=== PATIENT | female | born 1970 | race African-American/Black ===

== ENCOUNTER 2018-07-15 20:35 | Emergency (ER) | payer OTHER ==
[2018-07-15 20:43] VITALS: BP 154/61; PULSE 100; TEMP 98.5; BMI 24.7
--- NOTE | 2018-07-15 20:45 | PDOC ---
Rapid Medical Evaluation Chief Complaint: Respiratory Time Seen by Provider: 07/15/18 20:40 Medical Evaluation: Allergies Allergy/AdvReac Type Severity Reaction Status Date / Time No Known Allergies Allergy Verified 05/14/16 20:31 07/15/18 20:41 I have performed a brief in-person evaluation of this patient. The patient presents with a chief complaint of: cough with yellow phlegm, no fevers / sorethroat Pertinent physical exam findings: tight insp exp wheezing / moist I have ordered the following: Duoneb treatment / CXR The patient will proceed to the ED for further evaluation. Discharge Disposition - Referrals Referrals: Donny Leung MD [Primary Care Provider] - - Patient Instructions - Post Discharge Activity
[2018-07-15] MEDS ORDERED: ALBUTEROL SO4 2.5/IPRATROPIUM 0.5 INH SOL 3 ML VIAL.NEB. NEB ONE (21:45)
[2018-07-15] MEDS: ALBUTEROL SO4 2.5/IPRATROPIUM 0.5 INH SOL 3 ML VIAL.NEB. NEB SCH (21:56)
[2018-07-15] MEDS ORDERED: predniSONE 20 MG TABLET (UD) PO ONE (22:20)
[2018-07-15] MEDS ORDERED: guaiFENesin 200 MG/10 ML 10 ML UNIT-DOSE CUPS PO ONE (22:21)
[2018-07-15] MEDS ORDERED: guaiFENesin/D-METHORPHAN HB 10 ML UNIT-DOSE CUPS ONE (22:22)
[2018-07-15] MEDS ORDERED: predniSONE 20 MG TABLET (UD) ONE (22:22)
--- NOTE | 2018-07-15 22:28 | PDOC ---
History of Present Illness - General Chief Complaint: Respiratory Stated Complaint: COLD,COUGH Time Seen by Provider: 07/15/18 20:40 History Source: Patient Exam Limitations: Clinical Condition - History of Present Illness Initial Comments: 07/15/18 22:21 Patient with history of asthma present with complaint of 2 weeks history of persistent nonproductive cough which has now turned productive cough with nasal congestion, wheezing and intermittent chest tightness. Patient reported yellow sputum production with cough. Patient denies fever, chills, bodyaches. Timing/Duration: other (2 weeks) Past History - Past Medical History Allergies/Adverse Reactions: Allergies Allergy/AdvReac Type Severity Reaction Status Date / Time No Known Allergies Allergy Verified 07/15/18 20:43 Home Medications: Ambulatory Orders Azithromycin [Zithromax 250mg Tablets -] 250 mg PO UTDICT #6 tab 07/15/18 Benzonatate [Tessalon Pearls -] 100 mg PO TID PRN #21 capsule 07/15/18 Ipratropium [place] 2 spray NS BID PRN #1 spray 07/15/18 Prednisone [Deltasone] 20 mg PO BID 5 Days #10 tablet 07/15/18 Asthma: Yes COPD: No - Immunization History Immunization Up to Date: Yes - Suicide/Smoking/Psychosocial Hx Smoking History: Current every day smoker Have you smoked in the past 12 months: No Number of Cigarettes Smoked Daily: 4 Information on smoking cessation initiated: Yes 'Breaking Loose' booklet given: 07/15/18 Hx Alcohol Use: No Drug/Substance Use Hx: No Substance Use Type: None Hx Substance Use Treatment: No Review of Systems - Review of Systems Able to Perform ROS?: Yes Is the patient limited [place]ese proficient: No Constitutional: No: Chills, Fever HEENTM: Yes: See HPI, Nose Congestion. No: Eye Pain, Blurred Vision, Tearing, Recent change in vision, Double Vision, Cataracts, Ear Pain, Ocular Prothesis, Ear Discharge, Nose Pain, Tinnitus, Nose Bleeding, Hearing Loss, Throat Pain, Throat Swelling, Mouth Pain, Dental Problems, Difficulty Swallowing, Mouth Swelling, Other Respiratory: Yes: See HPI, Cough, Wheezing, Productive cough. No: Orthopnea, Shortness of Breath, SOB with Exertion, SOB at Rest, Stridor, Hemoptysis Cardiac (ROS): No: Symptoms Reported, Chest Pain, Edema, Irregular Heart Rate, Lightheadedness, Palpitations, Syncope, Chest Tightness, Other ABD/GI: No: Symptoms Reported, Abdominal Distended, Abd. Pain w/ defecation, Blood Streaked Bowels, Constipated, Diarrhea, Difficulty Swallowing, Nausea, Poor Appetite, Poor Fluid Intake, Rectal Bleeding, Vomiting, Indigestion, Abdominal cramping, Tarry Stools, Other All Other Systems: Reviewed and Negative *Physical Exam - Vital Signs Last Vital Signs Temp Pulse Resp BP Pulse Ox 98.5 F 100 H 18 154/61 98 07/15/18 20:41 07/15/18 20:41 07/15/18 20:41 07/15/18 20:41 07/15/18 20:41 - Physical Exam Comments: 07/15/18 22:23 GENERAL: Well developed, well nourished. Awake and alert. No acute distress. HEENT: Normocephalic, atraumatic. PERRLA, EOMI. No conjunctival pallor. Sclera are non-icteric. Moist mucous membranes. Oropharynx is clear. NECK: Supple. Full ROM. CARDIOVASCULAR: Regular rate and rhythm. No murmurs, rubs, or gallops. Distal pulses are 2+ and symmetric. PULMONARY: Mild inspiratory wheeze diffusely.No evidence of respiratory distress. No rales or rhonchi. ABDOMINAL: Soft. Non-tender. Non-distended. No rebound or guarding. No organomegaly. Normoactive bowel sounds. MUSCULOSKELETAL Normal range of motion at all joints. EXTREMITIES: No cyanosis. No clubbing. No edema. No calf tenderness. SKIN: Warm and dry. Normal capillary refill. No rashes. No jaundice. NEUROLOGICAL: Alert, awake, appropriate. Gait is normal without ataxia. PSYCHIATRIC: Cooperative. Good eye contact. Appropriate mood General Appearance: Yes: Nourished, Appropriately Dressed. No: Apparent Distress ED Treatment Course - Medications Given in the ED: ED Medications Discontinued Medications Generic Name Dose Route Start Last Admin Trade Name Freq PRN Reason Stop Dose Admin Albuterol/Ipratropium 1 amp 07/15/18 20:45 07/15/18 21:56 Duoneb - NEB 07/15/18 21:01 1 amp Q15M CHUCK Administration Medical Decision Making - Medical Decision Making 07/15/18 22:23 Patient with history of asthma presented with complaint of 2 weeks history of cough, nasal congestion, runny nose and intermittent chest tightness. Clinical exam significant for mild inspiratory wheeze. Nebulizer treatment with Atrovent and albuterol given which improved her wheezing. Prednisone 20 mg by mouth and Robitussin given for cough. Chest x-ray shows no acute infiltrate.symptoms likely bronchitis and patient will be treated on an outpatient basis with his azithromycin antibiotics, Tessalon Perles and oral prednisone with pulmonology follow-up. *DC/Admit/Observation/Transfer Diagnosis at time of Disposition: Cough, Nasal congestion Acute bronchitis Qualifiers: Bronchitis organism: unspecified organism Qualified Code(s): J20.9 - Acute bronchitis, unspecified - Discharge Dispostion Disposition: HOME Condition at time of disposition: Stable Decision to Admit order: No - Prescriptions Prescriptions: Azithromycin [Zithromax 250mg Tablets -] 250 mg PO UTDICT #6 tab Benzonatate [Tessalon Pearls -] 100 mg PO TID PRN #21 capsule PRN Reason: Cough Ipratropium [place] 2 spray NS BID PRN #1 spray PRN Reason: nasal congestion Prednisone [Deltasone] 20 mg PO BID 5 Days #10 tablet - Referrals Referrals: Donny Leung MD [Primary Care Provider] - John Alcazar MD [Staff Physician] - - Patient Instructions Printed Discharge Instructions: DI for Acute Bronchitis Additional Instructions: Your chest x-ray shows no pneumonia. The prescribed medication as prescribed. Follow up with her pulmonologistif symptoms persist for more than 4 days - Post Discharge Activity
== END 2018-07-15 22:36 | disposition home or self-care (01) ==
LOC: JERFT 20:35
PROC: 3E0F7GC Introduction of Other Therapeutic Substance into Respiratory Tract, Via Natural or Artificial Opening (ICD-10-PCS; principal; 2018-07-15)
DX: J20.9 Acute bronchitis, unspecified (principal)
CPT/HCPCS: 71046-TC-FY; 99281-25